=== PATIENT | male | born 1955 | race Caucasian/White ===

== ENCOUNTER 2025-01-30 07:55 | Outpatient (REF) | payer MEDICARE, SELFPAY ==
--- OUTSIDE RECORDS SUMMARY | 2025-01-30 07:59 | XMS_ITS ---
Author Name [facility] Organization Unknown Care Team Organization Name Specialty Phone Email Start Date End Da te [facility] ACO 11/21/2024 [facility] SHANI SEVILLA Primary Care 12/09/2022 11/21/2023 [facility] BHASKAR Tan Primary Care 09/10/202211/02 [facility] MARCIE RAHMAN Primary Care 02/09/20222023
--- OUTSIDE RECORDS SUMMARY | 2025-01-30 08:00 | XMS_ITS | Clinical Summary ---
Author Organization [facility] Address [address] [place] [address] Care Team Providers Care Backside Grinder Name Role Phone Lissy Russell MD Primary Care Prov ider Medications Medication Sig Dispensed Refills Start Date End Date Status hydroCHLOROthiazide (HYDRODIURIL) tablet 25 mg Take 25 mg by mouth daily. 0 04/17/2021 Active levothyroxine (SYNTHROID) tablet 50 mcg Take 50 mcg by mouth daily. 0 04/17/2021 Active naproxen (NAPROSYN) 500 MG tablet Take 500 mg by mouth 2 (two) times a day with meals. 0 02/25/2021 Active pravastatin (PRAVACHOL) tablet 40 mg Take 40 mg by mouth daily. 0 03/02/2021 Active Family History Medical History Relation Name Comments Heart disease Brother Cancer Father Heart disease Mother Hypertension Mother Relation Name Status Comments Brother Father Mother Social History Tobacco Use Types Packs/Day Years Used Date Smoking Tobacco: Former Smokeless Tobacco: Never Alcohol Use Standard Drinks/Week Comments Yes 2 (1 standard drink = 0.6 oz pur e alcohol) Sex and Gender Information Value Date Recorded Sex Assigned at Not on file Gender Identity Not on file Sexual Orientation Not on file Job Start Date Occupation Industry Not on file Not on file Not on file Last Filed Vital Signs Vital Sign Reading Time Taken Comments Blood Pressure - - Pulse - - Temperature - - Respiratory Rate - - Oxygen Saturation - - Inhaled Oxygen Concentration - - Weight 105.2 kg (232 lb) 05/27/2021 8:39 AM EST Height 182.9 cm (6') 05/27/2021 8:39 AM EST Body Mass Index 31.46 05/27/2021 8:39 AM EST Plan of Treatment Health Maintenance Due Date Last Done Comments Hepatitis C Screening 1954 Depression Screening 1966 BMI Counseling 1972 Preventative Health Evaluation 1972 Colon Cancer Screening (Colonoscopy) 09/13/1999 Shingrix-Zoster Vaccine (1 o f 2) 2004 Fall Risk Assessment 09/13/2019 Pneumococcal Vaccine (2 of 2 - PPSV23 or PCV20) 02/03/2021 02/04/2020 DTap / Tdap / Td (2 - Td or Tdap) 12/08/2022 12/08/2012 COVID-19 Vaccine (3 - 2024-2 6 season) 2024 06/04/2020, 05/14/2020 Influenza Vaccine (#1) 2024 0, 01/25/2017, 05/01/2014 RSV Adult > 60+ Yrs or (1 - 1-dose 75+ series) 2029 Hepatitis B Vaccines Aged Out No long er eligible based on patient's age to complete this topic RSV Ped < 20 months Aged Out No longe r eligible based on patient's age to complete this topic Care Teams Backside Grinder Relationship Specialty Start Date End Date Lissy Russell MD PCP - General Internal Medicine 05/12/21
--- OUTSIDE RECORDS SUMMARY | 2025-01-30 08:00 | XMS_ITS | Clinical Summary ---
Author Organization [address] [facility] Address [address] [place] [address] Phone Care Team Providers Care Rating Officer Name Role Phone Lissy Russell MD Primary Care Prov ider Allergies Active Allergy Reactions Criticality Noted Date Comments Omtvlps-Tow-Ugn Reductase Inhibitors Medium 10/25/2014 Arm Pain Medications meclizine (ANTIVERT) 12.5 mg tablet TAKE 1 TABLET BY MOUTH TWICE DAILY NEEDED FOR VERTIGO 3 Active sildenafiL (VIAGRA) 100 mg tablet Start with 1/2 tablet and increase to 1 tablet as needed 30-60 minutes before intercourse. Max is 100mg in 24 hours. 3 Active TURMERIC ORAL Take by mouth. Active levothyroxine (SYNTHROID, LEVOTHROID) 50 mcg tablet TAKE 1 TABLET BY MOUTH DAILY 90 tablet 5 Active hydroCHLOROthi azide (HYDRODIURIL) 25 mg tablet TAKE 1 TABLET BY MOUTH DAILY 90 tablet 5 Active losartan (COZAAR) 50 mg tablet TAKE 2 TABLETS BY MOUTH DAILY 180 tablet 5 Active metoprolol succinate (TOPROL-XL) 25 mg 24 hr tablet TAKE 1 TABLET BY MOUTH DAILY 90 tablet 3 5 Active pravastatin (PRAVACHOL) 40 mg tablet TAKE 1 TABLET BY MOUTH DAILY 90 tablet 5 Active metoprolol succinate (TOPROL-XL) 25 mg 24 hr tablet Take 1 Tablet by mouth daily for 360 days. 4 025 Discontinued losartan (COZAAR) 50 mg tablet TAKE 2 TABLETS BY MOUTH DAILY 180 tablet 1 5 025 Discontinued hydroCHLOROthi azide (HYDRODIURIL) 25 mg tablet TAKE 1 TABLET BY MOUTH DAILY 90 tablet 1 5 025 Discontinued levothyroxine (SYNTHROID, LEVOTHROID) 50 mcg tablet TAKE 1 TABLET BY MOUTH DAILY 90 tablet 1 5 025 Discontinued pravastatin (PRAVACHOL) 40 mg tablet TAKE 1 TABLET BY MOUTH DAILY 90 tablet 5 025 Discontinued Active Problems Problem Noted Date Diagnosed Date Pacemaker 05/24/2024 Essential hypertension 02/27/2024 Overview (02/27/2024): Last Assessment & Plan: Patient's blood pressure is well controlled on current regimen. Continue hydrochlorothiazide and losartan. Hypercholesteremia 02/27/2024 Overview (02/27/2024): Last Assessment & Plan: Patient's LDL has shown improvement with the addition of Zetia. However, he describes more myalgia in the last couple of months. While this certainly can be related to progression of his osteoarthritis, will have him take his Zetia holiday and if his symptoms do not resolve, also a statin holiday. He will notify me of how he is doing via [employer]. Psoriatic arthritis (CMS/HCC V24, CMS/HCC V28) 1 04/28/2023 Thyroid disorder 02/27/2024 Polyp of colon 02/22/2022 Obesity (BMI 30-39.9) 11/28/2017 Arrhythmia 10/25/2014 Heart block 10/25/2014 Overview (02/27/2024): St. Rikki dual-chamber pacemaker placed in October 2014 Pacemaker dependent Last Assessment & Plan: Patient's device function has been normal on device interrogations both in office and remote. His episode described is likely vasovagal in etiology though he cannot think of any specific trigger. There were no arrhythmias through the automatic notifications of his device, but he will send a transmission next week when the office reopens. Given his high percentage of ventricular pacing as well as this episode, will obtain an echocardiogram to follow his LVEF. Continue for now his aspirin, ARB and diuretic. RBBB 08/06/2013 Encounters Date Type Department Care Team Description 01/03/2025 8:30 AM EDT Ancillary Procedure [facility] - [address] [place] [address] Encounter for adjustment or management of cardiac device 12/07/2024 Telephone [facility] - [address] [place] [address] Jamie Mcdowell MD 11/01/2024 Telephone [facility] - [address] [place] [address] Misha Gipson MD 10/31/2024 10:00 AM EDT Ancillary Procedure [facility] - [address] [place] [address] Pacemaker; Heart block; Essential hypertension; Obesity (BMI 30-39.9) 10/31/2024 8:10 AM EDT Consult [facility] - [address] [place] [address] Mariana Murphy PA Pacemaker (Primary Dx); Heart block; Essential hypertension; Obesity (BMI 30-39.9) from Last 3 Months Immunizations Immunization Administration Dates Next Due Influenza Quadravalent, 0.5m l (Fluad) 65yo and older 01/19/2021,01/31/2020 Influenza Quadravalent, 0.5m l (Fluzone High-dose) 65yo and older 03/15/2022 Influenza Quadravalent, MDCK , 0.5ml, preservative free (Flucelvax) 6mo and older 04/14/2018,01/25/2017,02/05/2016 Influenza Quadrivalent, 0.5m l, preservative free (Fluarix; FluLaval; Fluzone) ages 6mo and older (Afluria) 3yo and older 02/09/2019 Influenza trivalent, 0.5mL ( Fluad) 65yo and older 02/17/2024,04/21/2023,02/02/2022,2019,01/07/2020,05/01/2014 Influenza trivalent, 0.5mL ( Fluzone High-dose) 65yo and older 04/21/2023,02/02/2022,01/07/2020 Influenza trivalent, 0.5mL, preservative free (Fluarix; FluLaval; Fluzone) ages 6mo and older (Afluria) 3 years and older 02/09/2019 Influenza trivalent, with preservative (Fluzone; Afluria) 6mo and older 05/01/2014 Pfizer (ages 12 & older) Biv alent, COVID-19 03/15/2022 GoIP Global (ages 12 & older) BETTY S-CoV-2 COVID-19, mRNA, LNP-S, geovani-sucrose, preservative free 07/11/2021 GoIP Global Covid-19 Bivalent, Or iginal + Ba.1 (Non-US Trademark [employer] Bivalent) 03/15/2022 GoIP Global SARS-CoV-2 COVID-19, mRNA, LNP-S, preservative free 07/10/2021,01/11/2021,06/04/2020,2020 Pneumococcal conjugate 13 va lent (Prevnar 13, PCV13) 2mo and older 02/04/2020 Pneumococcal conjugate 20 va lent (Prevnar 20, PCV 20) 2mo and older 04/21/2023 Td Tetanus diptheria (Tdvax) 7yo and older 10/20/2023 Tdap Tetanus diptheria acell ular pertussis (Boostrix; Adacel) 7yo and older 12/08/2012 Zoster Live 08/04/2016 Surgical History Surgery Date Site/Laterality Comments OTHER SURGICAL HISTORY PROCEDURE: [place] REPAIR PRIMARY OPEN/PRQ RUPTURED ACHILLES TENDON; COMMENT: left PACEMAKER IMPLANT 2014 PROCEDURE: HISTORICAL PACEMAKER COLONOSCOPY 05/06/2021 TAx2 recall 3 yrs INSERT / REPLACE / REMOVE PACEMAKER 2014 APPENDECTOMY 1966 SKIN CANCER EXCISION 05/05/2023 - 06/02/2023 on right eyelid COLONOSCOPY 09/03/2009 recall 5 yrs Medical History Medical History Date Comments Hypercholesteremia DX:Hyperchole steremia HTN (hypertension) DX:HTN (hyper tension) Thyroid disorder DX:Thyroid diso rder Psoriatic arthritis (CMS/HCC V24, CMS/HCC V28) DX:Psoriatic arthritis (HCC) Rbbb 08/06/2013 DX:RBBB Colon polyp Family History Medical History Relation Name Comments Coronary artery disease Brother 1 No Known Problems Brother 2 No Known Problems Brother 3 No Known Problems Daughter Colon cancer Father Miko Other: ca rectal Father Miko Diabetes Mother Glenny Heart failure Mother Glenny mid 60's DM, ?GA's No Known Problems Sister 1 No Known Problems Sister 2 Thyroid disease Sister 3 No Known Problems Son Colon polyps Neg Hx Relation Name Status Comments Brother 1 Alive Brother 2 Alive Brother 3 Alive Daughter Alive Father Miko Mother Glenny Sister 1 Alive Sister 2 Alive Sister 3 Alive Son Alive Social History Tobacco Use Types Packs/Day Years Used Date Smoking Tobacco: Never Smokeless Tobacco: Never Tobacco Cessation:Counseling Given: Not Answered Alcohol Use Standard Drinks/Week Comments Yes 1 (1 standard drink = 0.6 oz pur e alcohol) Housing Instability Answer Date Recorde d Are you worried that in the next 2 months you may not have stable housing? Patient declined 04/22/2024 Food Access & Nutrition Answer Date Rec orded Do you have access to a vari ety of food including fruits and vegetables? Patient declined 04/22/2024 Access to Healthcare Answer Date Record ed Within the last 3 months, ho w many times did you visit the emergency department for your medical care? 0 04/22/2024 Health Literacy Answer Date Recorded How often do you need to hav e someone help you when you read instructions, pamphlets, or other written material from your doctor or pharmacy? Patient declined 04/22/2024 Caregiver: How often do you need to have someone help you when you read instructions, pamphlets, or other written material from your doctor or pharmacy? Not on file 025 Financial Risk Answer Date Recorded How hard is it for you to pa y for the very basics like food, housing, medical care, and air conditioning / heating? Patient declined 04/22/2024 Transportation Answer Date Recorded Has the lack of transportati on kept you from meetings, work, or from getting things needed for daily living? Patient declined 04/22/2024 Has the lack of transportati on kept you from medical appointments or from getting medications? Patient declined 04/22/2024 Social Isolation Answer Date Recorded How often do you feel lonely or isolated from those around you? Patient declined 04/22/2024 Food Risk Answer Date Recorded Within the past 12 months we worried whether our food would run out before we got money to buy more. Patient declined 025 Within the past 12 months th e food we bought just didn't last and we didn't have money to get more. Patient declined 04/04 Dependent Care Answer Date Recorded Do you need help finding or paying for care for your loved ones. For example, child care education coordinator or elderly care for an older adult? Patient declined 04/22/2024 Education Answer Date Recorded Do you think completing more education or training, like finishing a GED, going to college, or learning a trade, would be helpful for you? Patient declined 04/22/2024 Employment and Income Answer Date Recor ded During the last four weeks, have you been actively looking for work? Patient declined 04/22/2024 Living Situation Answer Date Recorded What is your living situation? Unrecognized valu e 04/22/2024 Interpersonal Safety Answer Date Record ed Physical Abuse Unrecognized value 07/24/2024 Verbal Abuse Unrecognized value 07/24/2024 Sex and Gender Information Value Date Recorded Sex Assigned at Not on file Legal Sex Male 2:42 PM EST Gender Identity Not on file Sexual Orientation Not on file Obstetrics History Last Filed Vital Signs Vital Sign Reading Time Taken Comments Blood Pressure 127/78 10/31/2024 10:29 AM EDT Pulse 56 10/31/2024 7:55 AM EDT Temperature 36 C (96.8 F) 07/24/2024 8:19 AM EDT Respiratory Rate 18 07/24/2024 9:13 AM EDT Oxygen Saturation 97% 10/31/2024 7:55 AM EDT Inhaled Oxygen Concentration - - Weight 107 kg (235 lb) 10/31/2024 10:29 AM EDT Height 182.9 cm (6') 10/31/2024 10:29 AM EDT Body Mass Index 31.87 10/31/2024 10:29 AM EDT Plan of Treatment Upcoming Encounters Date Type Department Care Team (Late st Contact Info) Description 02/25/2025 2:30 PM EST Office Visit Adult Medicine - [place] [address] [place] [address] Hesham Lee PA [address] [place] [address] 01/06/2026 8:30 AM EDT Ancillary Procedure [facility] [address] [facility] [address] [place] [address] Health Maintenance Due Date Last Done Comments RSV Immunization Adult Patients (1 - Risk 50-74 years 1-dose series) 2004 Zoster Vaccines (2 of 3) 09/29/2016 08/04/2016 Medicare Annual Wellness Visit 04/21/2024 04/21/2023 COVID-19 Vaccine ( season) 2024 02/17/2024, 10/08/2022, 03/15/2022, Additional history exists Influenza Vaccine (#1) 2024 , 04/21/2023, 04/21/2023, Additional history exists Hypertension/CHF/CAD Annual BMP Blood Test 04/18/2025 04/18/2024, 01/26/2024, 01/26/2024 Social Influencers of Health Screening 04/22/2025 04/22/2024 Falls Risk Assessment 07/24/2025 07/24/2024, 024 Cholesterol Screening (Lipid Panel) 04/18/2029 04/18/2024, 03/16/2023 DTaP,Tdap,and Td Vaccines (3 - Td or Tdap) 10/19/2033 10/20/2023, 12/08/2012 Colorectal Cancer Screening: Colonoscopy 07/24/2034 07/24/2024, 05/06/2021 Hepatitis C Screening Completed 12/05/2015 Abdominal Aortic Aneurysm (AAA) Screen Discontinued 08/05/2020 Pneumococcal Vaccine: 50+ Years Completed 04/21/2023, 02/04/2020 Depression Screening Completed 04/22/2024, 04/21/19 HIB Vaccines Aged Out No longer eligi ble based on patient's age to complete this topic HPV Vaccines Aged Out No longer eligi ble based on patient's age to complete this topic Hepatitis A Vaccines Aged Out No long er eligible based on patient's age to complete this topic Hepatitis B Vaccines Aged Out No long er eligible based on patient's age to complete this topic IPV Vaccines Aged Out No longer eligi ble based on patient's age to complete this topic MMR Vaccines Aged Out No longer eligi ble based on patient's age to complete this topic Meningococcal ACWY Vaccine Aged Out N o longer eligible based on patient's age to complete this topic Meningococcal B Vaccine Aged Out No l onger eligible based on patient's age to complete this topic RSV Immunization Patients Under 20 months Aged Out No longer eligible based on patient's age to complete this topic Varicella Vaccines Aged Out No longer eligible based on patient's age to complete this topic Medical Devices Implanted Type Area Nutrition Manager Device Identifier Shelf Expiration Date Model / Serial / Lot Rosa Elena-Stalena 2240 Mundo(Tm) [id number] Implanted: by Misha Gipson MD (Quantity not on file) Cardiac Pacemaker Left: Chest [employer] [employer] 2240 ASSJANNET(TM ) / [id number] / Rosa Elena-Stalena [address] [id number] Implanted: (Quantity not on file) Cardiac Pacemaker [employer] ASS[employer] Espinoza / [id number] / Rosa Elena-Stju Assurity Mri [id number] Implanted:07/2024 (Quantity not on file) Cardiac Pacemaker [employer] MRI 2272 / [id number] / Procedures Procedure Name Priority Date/Time Associated Diagnosis Comments CARDIAC DEVICE CHECK- IN CLINIC- MURJ Routine 01/03/2025 1:02 PM EDT Encounter for adjustment or management of cardiac device EXTERNAL CLINICAL LAB Routine 11/26/2024 10:38 AM EDT TRANSTHORACIC ECHOCARDIOGRAM (TTE) COMPLETE W/ CONTRAST Routine 10/31/2024 10:29 AM EDT Pacemaker Heart block Essential hypertension Obesity (BMI 30-39.9) ECG 12-LEAD Routine 10/31/2024 8:45 AM EDT Pacemaker COLONOSCOPY Routine 07/24/2024 8:52 AM EDT Polyp of colon COMPREHENSIVE METABOLIC PANEL Routine 04/18/2024 9:01 AM EST Essential hypertension, malignant Psoriatic arthropathy (CMS/HCC V24, CMS/HCC V28) Disease of thyroid gland LIPID PANEL WITH REFLEX TO DIRECT LDL Routine 04/18/2024 9:01 AM EST Essential hypertension, malignant Psoriatic arthropathy (CMS/HCC V24, CMS/HCC V28) Disease of thyroid gland HM FALLS RISK ASSESSMENT Routine 10/20/2023 HM DEPRESSION SCREENING Routine 04/21/2023 HM ABDOMINAL AORTIC ANEURYSM SCRREN Routine 08/05/2020 HM HEPATITIS C SCREENING Routine 12/05/2015 from Last 3 Months or Most Recently Relevant to Health Maintenance Results * CARDIAC DEVICE CHECK- IN CLINIC- MUR (01/03/2025 1:02 PM EDT) Date Time Interrogation Session [id number] CV DEVICE CHECK Implantable Pulse Generator Nutrition Manager [employer]ik[employer] CV DEVICE CHECK Implantable Pulse Generator Type IPG CV DEVICE CHECK Implantable Pulse Generator Model Assurity MRI 2272 CV DEVICE CHECK Implantable Pulse Generator Serial Number [id number] CV DEVICE CHECK Implantable Pulse Generator Implant Date 20241206 CV DEVICE CHECK Battery Voltage 3.050 CV D EVICE CHECK Battery Status Beginning of Service CV DEVICE CHECK Mio Statistic RA Percent Paced 70.00 CV DEVICE CHECK Mio Statistic RV Percent Paced 99.98 CV DEVICE CHECK Lead Channel Sensing Intrinsic Amplitude 4.800 CV DEVICE CHECK Lead Channel Setting Sensing Sensitivity 0.75 CV DEVICE CHECK Lead Channel Impedance Value 463 CV DEVICE CHECK Lead Channel Pacing Threshold Amplitude 0.750 CV DEVICE CHECK Lead Channel Pacing Threshold Pulse Width 0.5 CV DEVICE CHECK Lead Channel RA Pacing Threshold Date 2025-01-03 CV DEVICE CHECK Lead Channel Setting Pacing Amplitude 2.000 CV DEVICE CHECK Lead Channel Setting Pacing Pulse Width 0.5 CV DEVICE CHECK Lead Channel Setting Sensing Sensitivity 2.00 CV DEVICE CHECK Lead Channel Impedance Value 525 CV DEVICE CHECK Lead Channel Pacing Threshold Amplitude 0.750 CV DEVICE CHECK Lead Channel Pacing Threshold Pulse Width 0.5 CV DEVICE CHECK Lead Channel RV Pacing Threshold Date 2025-01-03 CV DEVICE CHECK Lead Channel Setting Pacing Amplitude 1.130 CV DEVICE CHECK Lead Channel Setting Pacing Pulse Width 0.5 CV DEVICE CHECK Mio Setting Mode (NBG Code) DDDR CV DEVICE CHECK Mio Setting Lower Rate Limit 60 CV DEVICE CHECK Mio Setting AT Mode Switch Rate 180 CV DEVICE CHECK Mio Setting Maximum Tracking Rate 130 CV DEVICE CHECK Mio Setting Maximum Sensor Rate 130 CV DEVICE CHECK Mio Setting PAV Delay 200 CV DEVICE CHECK Mio Setting BASSAM Delay 150 CV DEVICE CHECK Date of Service 2025-05-10 CV DEVICE CHECK Anatomical Region Laterality Modality Device Interroga tion 01/03/2025 Impressions 01/08/2025 12:57 PM EDT Normal In-Office: No Events * Normal Device Function * Alerts or events: None * Battery: IBETH, 9.70 yrs * Sensing, impedance and thresholds reviewed and tested * Presenting Rhythm: AP-GUM MACHINE OPERATOR 60 bpm * No R waves @ VVI 30 bpm today * Heart Rate Histograms reviewed, rate response turned on today. * Pacing and Detection Parameters were evaluated * Incision well approximated, no edema, erythema or drainage noted. Narrative Procedure Note Misha Gipson MD - 01/08/2025 IMPRESSION: Normal In-Office: No Events * Normal Device Function * Alerts or events: None * Battery: IBETH, 9.70 yrs * Sensing, impedance and thresholds reviewed and tested * Presenting Rhythm: AP-GUM MACHINE OPERATOR 60 bpm * No R waves @ VVI 30 bpm today * Heart Rate Histograms reviewed, rate response turned on today. * Pacing and Detection Parameters were evaluated * Incision well approximated, no edema, erythema or drainage noted. us Order Referral Cardiovascular CV IMPLANTABLE CAR DIAC DEVICE PROCEDURES Final Result * External clinical lab (11/26/2024 10:38 AM EDT) Historical Provider LAB BLOOD ORDERABLES Nikky l Result * (ABNORMAL) TRANSTHORACIC ECHOCARDIOGRAM (TTE) COMPLETE W/ CONTRAST (10/31/2024 10:29 AM EDT) BSA 2.33 m2 CV PACS LV EDV (A2C) 162 mL CV PACS LV EDV (A4C) 154 mL CV PACS LV Diastolic Volume (BP) 163(A) 62 - 150 mL CV PACS LV ESV (A2C) 77 mL CV PACS LV ESV (A4C) 70 mL CV PACS LV Systolic Volume (BP) 74(A) 21 - 61 mL CV PACS IVSD 1.3(A) 0.6 - 1.0 cm CV PACS LVIDD 5.3 4.2 - 5.8 cm CV PACS LVIDS 3.3 2.5 - 4.0 cm CV PACS LVOT Diameter 2.2 cm CV PACS LVOT Mean Grad 4 mmHg CV PACS LVOT Peak VTI 30.1 cm CV PACS LVOT Mean Salomon 0.9 m/s CV PACS LVOT Peak Salomon 1.4 m/s CV PACS LVOT Peak Gradient 8 mmHg CV PACS LVPWD 1.3(A) 0.6 - 1.0 cm CV PACS MV E' Tissue Velocity Lateral 7 cm/s CV PACS MV E' Tissue Velocity Septal 7 cm/s CV PACS Ejection Fraction (A2C) 52 % CV PACS Ejection Fraction (A4C) 55 % CV PACS Ejection Fraction (BP) 55 % CV PACS LVOT Area 3.8 cm2 CV PACS LVOT Stroke Volume 114 mL CV PACS Left Atrium Minor [place] 5.8 cm CV PACS Left Atrium Major [place] 5.2 cm CV PACS LA Area Sys (A2C) 26 cm2 CV PACS LA Area Sys (A4C) 18 cm2 CV PACS LA Volume (BP) 71 mL CV PACS RA Area 13.1 cm2 CV PACS RA 2D Volume 31 mL CV PACS AV Regurgitation PHT 744 ms CV PACS AR Max Velocity 4.0 m/s CV PACS AV Peak Gradient 65 mmHg CV PACS AV Peak Salomon 2.1 m/s CV PACS AV Peak Gradient 17 mmHg CV PACS AV Mean Gradient 8 mmHg CV PACS Ao VTI 44.5 cm CV PACS AV Area Continuity Equation 2.6 cm2 CV PACS AV Area Peak Velocity 2.5 cm2 CV PACS Aortic Sinus Valsalva 3.6 cm CV PACS Ascending Aorta 3.4 cm CV PACS IVC Proximal 1.3 cm CV PACS E Wave Deceleration Time 342(A) 119 - 242 ms CV PACS MV Peak A Salomon 0.78 m/s CV PACS MV Peak E Salomon 0.66 m/s CV PACS PV Acceleration Time 162 ms CV PACS PV Acceleration Time 162 ms CV PACS PV Peak Velocity 1.0 m/s CV PACS PV Peak Gradient 4 mmHg CV PACS RV Diastolic Basal Dimension 3.6 2.5 - 4.1 cm CV PACS RV S' 16 cm/s CV PACS TAPSE 24 mm CV PACS LV ESV Index (A4C) 31 mL/m2 CV PACS LV EDV Index (A4C) 68 mL/m2 CV PACS E/E' Ratio Septal 9 CV PACS E/E' Ratio Averaged 9 CV PACS LVOT Stroke Index 50 mL/m2 CV PACS Relative Wall Thickness ratio 0.49 CV PACS LVOT:AV VTI Index 0.68 CV PACS FS 38 % CV PACS LV Mass 2D 287 g CV PACS Ascending Aorta Index 1.49 cm/m2 CV PACS LVOT flow 342 mL/s CV PACS RA 2D Volume Index 14 mL/m2 CV PACS CHARY Index (VTI) 1.13 cm2/m2 CV PACS CHARY Index (Pk Salomon) 1.10 cm2/m2 CV PACS LVIDD Index 2.32 cm/m2 CV PACS LVIDS Index 1.45 cm/m2 CV PACS AV Velocity Ratio 0.67 CV PACS E/A Ratio 0.8 CV PACS E/E' Ratio Lateral 9 CV PACS LV Systolic Volume Index (BP) 32 mL/m2 CV PACS LV Diastolic Volume Index (BP) 71 mL/m2 CV PACS LA Volume Index (BP) 31 mL/m2 CV PACS LV Mass Index 2D 126 g/m2 CV PACS LV EDV Index (A2C) 71 mL/m2 CV PACS LV ESV Index (A2C) 34 mL/m2 CV PACS AV LVOT Mid Gradient 17 mmHg CV PACS Est. RA Pressure 3 mmHg CV PACS Anatomical Region Laterality Modality Ultrasound Narrative 11/05/2024 11:32 AM EDT Left ventricle cavity size is normal. There is mild hypertrophy. Systolic function is low normal. The quantitative EF by 2D Seaman biplane is 55%. The apical septum and apical inferior are hypokinetic. Indeterminate diastolic function. Right ventricle cavity is normal. Right ventricular systolic function is normal. The atria are normal in size. No hemodynamically significant valve disease. Compared to 2021, probably no significant change. Left Ventricle Left ventricle cavity size is normal. There is mild hypertrophy. Systolic function is low normal. The quantitative EF by 2D Seaman biplane is 55%. The apical septum and apical inferior are hypokinetic. Indeterminate diastolic function. Right Ventricle Right ventricle cavity appears normal. Systolic function is normal. A pacer wire is present in the right ventricle. Left Atrium Left atrium volume index is normal. Right Atrium Right atrium cavity is normal. A pacer wire is present in the right atrium. IVC/SVC RA pressures is estimated to be 3 mmHg (IVC diameter <21 mm and decreases >50% during inspiration). Mitral Valve The leaflets are mildly thickened. There is mild annular calcification. There is trace regurgitation. There is no evidence of mitral valve stenosis. Tricuspid Valve The leaflets exhibit normal excursion. There is trace regurgitation. Cannot assess RVSP. Aortic Valve The aortic valve is trileaflet. The leaflets are mildly thickened. There is mild regurgitation. There is no evidence of aortic valve stenosis. There was dynamic mid-LV gradient of 17 mmHg upon Valsalva. Pulmonic Valve The pulmonic valve was not well visualized. There is trace pulmonic valve regurgitation. Ascending Aorta The aorta appears normal in size. Pericardium There is an fat pad. There is no pericardial effusion. Study Details Overall the study quality was technically difficult. Definity contrast was given to enhance imaging. Study was difficult due to: poor endocardial visualization. Mariana JEAN-BAPTISTE CV ECHO PROCEDURES Final Result * ECG 12 lead (10/31/2024 8:45 AM EDT) Ventricular Rate ECG 56 BPM GEMUSE Atrial Rate 56 BPM GEMUSE QRS Duration 180 ms GEMUSE Q-T Interval 494 ms GEMUSE QTc 476 ms GEMUSE R Ivesdale -67 degrees GEMUSE T Ivesdale 85 degrees GEMUSE ECG Interpretation AV dual-paced rhythm When compared with ECG of 25-JUL-2022 05:11, No significant change was found Confirmed by MARLEN GIPSON ([id number]) on 11/21/2024 5:27:25 PM GEMUSE 10/31/2024 7:59 AM EDT 11/21/2024 5:27 PM EDT Mariana JEAN-BAPTISTE ECG ORDERABLES Edited Result - Final GEMUSE * COLONOSCOPY Anesthesia - MAC; [facility] ENDOSCOPY (07/24/2024 8:52 AM EDT) Anatomical Region Laterality Modality Endoscopy 07/24/2024 8:37 AM EDT Impressions 07/24/2024 8:55 AM EDT - Diverticulosis in the sigmoid colon. - The examination was otherwise normal on direct and retroflexion views. - No specimens collected. Recommendation: - Repeat colonoscopy in 5 years for surveillance. Narrative 07/24/2024 8:55 AM EDT [facility] GI Patient Name: Erick Trimble Procedure Date: 07/24/2024 8:37 AM Date of : 1955 Age: 68 Room: ROOM 15 Gender: Male Note Status: Finalized Attending MD: Richar Gayle MD, Procedure Date No Time: 07/24/2024 Procedure: Colonoscopy Indications: High risk colon cancer surveillance: Personal history of colonic polyps Providers: Richar Gayle MD Referring MD: Richar Gayle MD Medicines: Propofol per Anesthesia Complications: No immediate complications. Estimated Blood Loss: Estimated blood loss: none. Procedure: Pre-Anesthesia Assessment: - ASA Grade Assessment: II - A patient with mild systemic disease. After I obtained informed consent, the scope was passed under direct vision. Throughout the procedure, the patient's blood pressure, pulse, and oxygen saturations were monitored continuously.The Olympus Colonoscope was introduced through the anus and advanced to the cecum, identified by appendiceal orifice and ileocecal valve. The colonoscopy was performed without difficulty. The patient tolerated the procedure well. The quality of the bowel preparation was good. Findings: The perianal and digital rectal examinations were normal. Multiple diverticula were found in the sigmoid colon. The exam was otherwise without abnormality on direct and retroflexion views. Procedure Code(s): --- Professional --- G0105, Colorectal cancer screening; colonoscopy on individual at high risk Diagnosis Code(s): --- Professional --- Z86.010, Personal history of colonic polyps K57.30, Diverticulosis of large intestine without perforation or abscess without bleeding CPT copyright 2020 [employer]. All rights reserved. The codes documented in this report are preliminary and upon event sales representative review may be revised to meet current compliance requirements. Richar Gayle MD 07/24/2024 8:55:20 AM This report has been signed electronically.Richar Gayle MD Number of Addenda: 0 Note Initiated On: 07/24/2024 8:37 AM Scope In: Scope Out: Endoscopy Department at [facility] - [address] [place] [id number] Procedure Note Richar Gayle MD - 07/24/2024 [facility] GI Patient Name: Erick Trimble Procedure Date: 07/24/2024 8:37 AM Date of : 1955 Age: 68 Room: ROOM 15 Gender: Male Note Status: Finalized Attending MD: Richar Gayle MD, Procedure Date No Time: 07/24/2024 Procedure: Colonoscopy Indications: High risk colon cancer surveillance: Personalhistory of colonic polyps Providers: Richar Gayle MD Referring MD: Richar Gayle MD Medicines: Propofol per Anesthesia Complications: No immediate complications. Estimated Blood Loss: Estimated blood loss: none. Procedure: Pre-Anesthesia Assessment: - ASA Grade Assessment: II - A patient with mild systemic disease. After I obtained informed consent, the scope was passed under direct vision. Throughout theprocedure, the patient's blood pressure, pulse, and oxygen saturations were monitored continuously.The Olympus Colonoscope was introduced through the anus and advanced to the cecum, identified by appendiceal orifice and ileocecal valve. The colonoscopy was performed without difficulty. The patient tolerated the procedure well. The quality of the bowel preparation was good. Findings: The perianal and digital rectal examinations were normal. Multiple diverticula were found in the sigmoidcolon. The exam was otherwise without abnormality ondirect and retroflexion views. Procedure Code(s): --- Professional --- G0105, Colorectal cancer screening; colonoscopy on individual at high risk Diagnosis Code(s): --- Professional --- Z86.010, Personal history of colonic polyps K57.30, Diverticulosis of large intestine without perforation or abscess without bleeding CPT copyright 2020 [employer]. All rights reserved. The codes documented in this report are preliminary and upon event sales representative reviewmay be revised to meet current compliance requirements. Richar Gayle MD 07/24/2024 8:55:20 AM This report has been signed electronically.Richar Gayle MD Number of Addenda: 0 Note Initiated On: 07/24/2024 8:37 AM Scope In: Scope Out: Endoscopy Department at [facility] - [address] [place] [id number] IMPRESSION: - Diverticulosis in the sigmoid colon. - The examination was otherwise normal on directand retroflexion views. - No specimens collected. Recommendation: - Repeat colonoscopy in 5 years for surveillance. Richar Gayle MD GI~PROCEDURE ORDERABLES Fin al Result * (ABNORMAL) Lipid panel with reflex to direct LDL (04/18/2024 9:01 AM EST) Cholesterol 198 0 - 200 mg/dL LAB CHEMISTRY METHOD 04/18/2024 1:00 PM [facility] Triglycerides 278(H) 0 - 150 mg/dL LAB CHEMISTRY METHOD 04/18/2024 1:00 PM [facility] HDL 41 >=40 mg/dL LAB CHEMISTRY METHOD 04/18/2024 1:00 PM [facility] LDL Calculated 101(H) 0 - 100 mg/dL LAB CHEMISTRY METHOD 04/18/2024 1:00 PM [facility] VLDL Cholesterol Zhang 55.6 mg/dL LAB CHEMISTRY METHOD 04/18/2024 1:00 PM [facility] Non HDL Chol. (LDL+VLDL) 157(H) <145 mg/dL LAB CHEMISTRY METHOD 04/18/2024 1:00 PM [facility] Chol/HDL Ratio 4.8(H) 0.0 - 4.4 LAB CHEMISTRY METHOD 04/18/2024 1:00 PM [facility] Blood Venous blood specimen / Unknown Venipuncture / Unknown 04/18/2024 9:01 AM EST 04/18/2024 9:01 AM EST us [facility] BLOOD ORDERABLES Final Res ult [facility] [address] [place] [address], [place] [phone] * (ABNORMAL) Comprehensive metabolic panel (04/18/2024 9:01 AM EST) Sodium 135 133 - 145 mmol/L LAB CHEMISTRY METHOD 04/18/2024 1:00 PM [facility] Potassium 4.2 3.5 - 5.5 mmol/L LAB CHEMISTRY METHOD 04/18/2024 1:00 PM [facility] Chloride 100 96 - 110 mmol/L LAB CHEMISTRY METHOD 04/18/2024 1:00 PM [facility] CO2 31 21 - 32 mmol/L LAB CHEMISTRY METHOD 04/18/2024 1:00 PM [facility] Anion Gap 4 3 - 11 LAB CHEMISTRY METHOD 04/18/2024 1:00 PM [facility] Glucose 108(H) 70 - 100 mg/dL LAB CHEMISTRY METHOD 04/18/2024 1:00 PM [facility] BUN 17 5 - 25 mg/dL LAB CHEMISTRY METHOD 04/18/2024 1:00 PM [facility] Creatinine 0.97 0.70 - 1.30 mg/dL LAB CHEMISTRY METHOD 04/18/2024 1:00 PM [facility] eGFR 85 >=60 mL/min/1. 73m2 LAB CHEMISTRY METHOD 04/18/2024 1:00 PM [facility] Comment:Calculation based on the Chronic Kidney Disease Epidemiology Collaboration (CKD-EPI) equation refit without adjustment for race. BUN/Creatinine Ratio 17.5 LAB CHEMISTRY METHOD 04/18/2024 1:00 PM [facility] Calcium 9.2 8.5 - 10.5 mg/dL LAB CHEMISTRY METHOD 04/18/2024 1:00 PM [facility] AST (SGOT) 22 10 - 42 unit/L LAB CHEMISTRY METHOD 04/18/2024 1:00 PM [facility] ALT (SGPT) 31 10 - 60 unit/L LAB CHEMISTRY METHOD 04/18/2024 1:00 PM [facility] Alkaline Phosphatase 68 42 - 121 unit/L LAB CHEMISTRY METHOD 04/18/2024 1:00 PM [facility] Total Protein 7.3 6.0 - 8.0 g/dL LAB CHEMISTRY METHOD 04/18/2024 1:00 PM [facility] Albumin 4.3 3.2 - 5.0 g/dL LAB CHEMISTRY METHOD 04/18/2024 1:00 PM [facility] Total Bilirubin 1.0 0.0 - 1.4 mg/dL LAB CHEMISTRY METHOD 04/18/2024 1:00 PM [facility] Blood Venous blood specimen / Unknown Venipuncture / Unknown 04/18/2024 9:01 AM EST 04/18/2024 9:01 AM EST [facility] BLOOD ORDERABLES Final Res ult [facility] [address] [place] [address], * Falls Risk Assessment (10/20/2023) Falls Risk Assessment abstracted Historical Provider MD HEALTH MAINTENANCE Final Result * Depression Screening (04/21/2023) Depression Screening abstracted Historical Provider HEALTH MAINTENANCE Final Result * Abdominal Aortic Aneurysm Screen (08/05/2020) Abdominal Aortic Aneurysm (AAA) Screening abstracted Anatomical Region Laterality Modality Other Historical Provider HEALTH MAINTENANCE Final Result * Hepatitis C Screening (12/05/2015) Hepatitis C Screening abstracted [facility] Provider HEALTH MAINTENANCE Final Result from Last 3 Months or Most Recently Relevant to Health Maintenance Insurance [place] [id number] MEDICARE [facility] Care Teams Rating Officer Relationship Specialty Start Date End Date Lisys Russell MD [address] [place] [phone] PCP - General Internal Medicine 04/18/24
== END 2025-01-30 07:56 | disposition home or self-care (01) ==
LOC: HO.SH 07:55
PROVIDERS: Visit Provider Physician Assistant Medical
DX: Z01.118 Encounter for examination of ears and hearing with other abnormal findings (principal); H90.3 Sensorineural hearing loss, bilateral
CPT/HCPCS: 92557